=== PATIENT | male | born 1985 | race African-American/Black ===

== ENCOUNTER 2020-12-07 03:15 | Emergency (ER) | payer MEDICAID ==
[~2020-12-07] VITALS: Ht 172.7 cm; Wt 68.0 kg
[2020-12-07 03:17] VITALS: BP 136/84
== END 2020-12-07 04:20 | disposition home or self-care (01) ==
LOC: ER 03:15
DX: J06.9 Acute upper respiratory infection, unspecified (principal)
CPT/HCPCS: 71045; 99283

== ENCOUNTER 2022-06-09 08:13 | Emergency (ER) | payer MEDICAID ==
[~2022-06-09] VITALS: Ht 172.7 cm; Wt 68.0 kg
[2022-06-09 08:20] VITALS: BP 132/78
[2022-06-09] MEDS ORDERED: KETOROLAC 30MG/ML VIAL IV STA (08:36)
[2022-06-09] MEDS ORDERED: ONDANSETRON HCL 4MG/2ML INJ IV STA (08:36)
[2022-06-09] MEDS ORDERED: SODIUM CHLORIDE 0.9% 1,000 ML IV ONE (08:45)
[2022-06-09 09:01] LABS: BASOPHILS % 0.3 % (0.0-2.0); EOSINOPHILS % 0.1 % (0.0-5.0); HEMATOCRIT. 48.6 % (42.0-52.0); HEMOGLOBIN. 15.8 g/dL (14.0-18.0); LYMPHOCYTES % 13.4 % (20.0-50.0); MEAN CORPUSCULAR HEMOGLOBIN 29.2 pg (28.0-32.0); MEAN PLATELET VOLUME 7.4 fl (7.4-10.4); NEUTROPHILS % 77.2 % (40.0-76.0); PLATELET 431 x1000/uL (130-400); RED BLOOD CELL COUNT 5.41 mill/uL (4.7-6.1); RED CELL DISTRIBUTION WIDTH 16.6 % (11.6-14.6)
[2022-06-09 09:05] LABS: CLARITY URINE CLEAR (CLEAR); COLOR URINE DARK YELLOW (YELLOW); KETONES URINE 3+ (NEGATIVE); LEUKOCYTE ESTERASE URINE TRACE (NEGATIVE); NITRITE URINE NEGATIVE (NEGATIVE); OCCULT BLOOD URINE 2+ (NEGATIVE); PROTEIN URINE 2+ (NEGATIVE); SPECIFIC GRAVITY URINE 1.032 (1.005-1.030)
[2022-06-09 09:17] LABS: CHLORIDE 101 mEq/L (98-107)
[2022-06-09 09:23] LABS: *AMPHETAMINES SCREEN URINE NEGATIVE (NEGATIVE); *BARBITURATES SCREEN URINE NEGATIVE (NEGATIVE); *BENZODIAZEPINES SCREEN URINE NEGATIVE (NEGATIVE); *COCAINE SCREEN URINE NEGATIVE (NEGATIVE); CANNABINOID URINE SCREEN PRESUMTIVE POSITIVE (NEGATIVE); METHADONE URINE SCREEN NEGATIVE (NEGATIVE); OPIATES URINE SCREEN NEGATIVE (NEGATIVE); PHENCYCLIDINE URINE SCREEN NEGATIVE (NEGATIVE)
[2022-06-09 09:25] LABS: ETHANOL BLOOD < 10 mg/dL
[2022-06-09] MEDS ORDERED: OMEP40CA20 MT (11:28)
[2022-06-09] MEDS ORDERED: ONDA4TAB50 MT (11:28)
== END 2022-06-09 12:07 | disposition home or self-care (01) ==
LOC: ER 08:26
DX: R10.33 Periumbilical pain (principal); R11.2 Nausea with vomiting, unspecified
CPT/HCPCS: 36415; 74176; 80053; 80305; 80320; 81003; 83690; 85025; 93005; 96361; 96374; 96375; 99285; J1885; J2405; J7030; G0480